=== PATIENT | male | born 1950 | race Caucasian/White ===

== ENCOUNTER 2019-06-16 07:05 | Inpatient (IN) | payer OTHER ==
[~2019-06-16] VITALS: Ht 177.8 cm; Wt 61.2 kg
[~2019-06-16 07:05] MED LIST: ASPI-859 PO; ESOM20CA PO; FENO160 PO; LOSA1TAB37 PO; OMEP40CA33 PO; POTA10TA15 PO
[2019-06-16] MEDS ORDERED: LEVOFLOXACIN 500 MG/D5W 100 ML IV ONE ×2 (07:30→12:45)
[2019-06-16] MEDS ORDERED: metroNIDAZOLE 500 mg/NS 100 ML IV ONE ×2 (07:30→17:00)
[2019-06-16] MEDS ORDERED: SIMETHICONE 40 MG/0.6 ML ML ONE (10:49)
[2019-06-16] MEDS: D5/0.45 NS 1,000 ML IV SCH (12:34)
[2019-06-16] MEDS ORDERED: HYDROmorphone 1 MG INJ. 1 MG/ML AMPUL IVP PRN ×2 (12:45)
[2019-06-16] MEDS ORDERED: HYDROcodone/ACETAMIN 5-325 MG TAB (NORCO/ VICODIN) PO PRN (12:45)
[2019-06-16] MEDS: HYDROmorphone 1 MG INJ. 1 MG/ML AMPUL IVP PRN ×2 (12:45→13:00)
[2019-06-16] MEDS ORDERED: HYDROcodone/ACETAMIN 10-325 MG TAB PO PRN (12:45)
[2019-06-16] MEDS ORDERED: ONDANSETRON HCL 4 MG/2 ML VIAL IVP PRN ×2 (12:45)
[2019-06-16] MEDS ORDERED: METOCLOPRAMIDE HCL 10 MG/2 ML VIAL IVP PRN (12:45)
[2019-06-16] MEDS ORDERED: HYDROmorphone 1 MG INJ. 1 MG/ML AMPUL ONE ×2 (13:00→13:18)
[2019-06-16 13:47] VITALS: BP_SYST 122
[2019-06-16 13:55] VITALS: BP_SYST 120
[2019-06-16 14:10] VITALS: BP_SYST 137
[2019-06-16 14:25] VITALS: BP_SYST 122
[2019-06-16 16:08] VITALS: BP_SYST 122
[2019-06-16] MEDS ORDERED: TEMAZEPAM 15 MG CAPSULE PO PRN (16:15)
[2019-06-16] MEDS ORDERED: WATER FOR IRRIGATION,STERILE 1,000 ML IRRIG.SOLN IR ONE (18:45)
[2019-06-16] MEDS ORDERED: PHENYLEPHRINE HCL 10 MG/ML VIAL (NEOSYNEPHRINE) ONE (18:45)
[2019-06-16] MEDS ORDERED: PROPOFOL 200MG/ 20ML VIAL (DIPRIVAN) IV ONE (18:45)
[2019-06-16] MEDS ORDERED: fentaNYL CITRATE 250 MCG/5 ML AMP ONE (18:45)
[2019-06-16] MEDS ORDERED: NEOSTIGMINE METHYLSULFATE 1 MG/ML, 10 ML VIAL ONE (18:45)
[2019-06-16] MEDS ORDERED: GLYCOPYRROLATE 0.2 MG/ML VIAL ONE (18:45)
[2019-06-16] MEDS ORDERED: SEVOFLURANE 15 MIN GAS INH ONE (18:45)
[2019-06-16] MEDS ORDERED: LR 1,000 ML IV.SOLN IV ONE (18:45)
[2019-06-16] MEDS ORDERED: SUCCINYLCHOLINE CHLORIDE 20 MG/ML(QUELICIN) ONE (18:45)
[2019-06-16] MEDS ORDERED: NS IRRIG SOLN 1000 ML IR ONE (18:45)
[2019-06-16] MEDS ORDERED: ROCURONIUM BROMIDE 10 MG/ML (ZEMURON) ONE (18:45)
[2019-06-16] MEDS ORDERED: ONDANSETRON HCL 4 MG/2 ML VIAL ONE (18:45)
[2019-06-16 20:25] VITALS: BP_SYST 137
[2019-06-16] MEDS: GABAPENTIN 100 MG CAPSULE PO SCH (21:33)
[2019-06-16] MEDS: metroNIDAZOLE 500 mg/NS 100 ML IV SCH (21:33)
[2019-06-16] MEDS: ACETAMINOPHEN 500 MG TABLET PO SCH (21:33)
[2019-06-16] MEDS: TEMAZEPAM 15 MG CAPSULE PO PRN (22:30)
[2019-06-17] MEDS: KETOROLAC TROMETHAMINE 15 MG VIAL IVP SCH ×5 (00:15→23:43)
[2019-06-17] MEDS: D5/0.45 NS 1,000 ML IV SCH (00:18)
[2019-06-17 00:27] VITALS: BP_SYST 155
[2019-06-17] MEDS: metroNIDAZOLE 500 mg/NS 100 ML IV SCH ×3 (05:21→22:12)
[2019-06-17] MEDS: NORMAL SALINE 5 ML DISP.SYRIN IVF SCH ×3 (05:21→22:00)
[2019-06-17] MEDS: ACETAMINOPHEN 500 MG TABLET PO SCH ×4 (06:19→22:13)
[2019-06-17 06:30] LABS: BASOPHILS % (AUTO) 0.2 % (0.0-2.0); EOSINOPHILS % (AUTO) 0.2 % (0.0-4.0); HEMATOCRIT 40.1 % (36-54); HEMOGLOBIN 13.8 g/dL (14.0-18.0); LYMPHOCYTES # (AUTO) 1.3 K/uL (1.0-5.5); LYMPHOCYTES % (AUTO) 16.8 % (20.5-51.5); MEAN CORPUSCULAR HEMOGLOBIN 33 pg (27-31); MEAN CORPUSCULAR HGB CONC 34 % (32-36); MEAN CORPUSCULAR VOLUME 97 fL (79.0-98.0); MONOCYTES # (AUTO) 0.6 K/uL (0.0-1.0); MONOCYTES % (AUTO) 7.7 % (1.7-9.3); NEUTROPHILS # (AUTO) 5.7 K/uL (1.8-7.7); NEUTROPHILS % (AUTO) 75.1 % (40.0-70.0); PLATELET COUNT (AUTO) 267 K/uL (130-430); RED BLOOD CELL COUNT(AUTO) 4.16 MIL/uL (4.2-6.2); RED CELL DISTRIBUTION WIDTH 13.1 % (9.0-15.0); WHITE BLOOD COUNT (AUTO) 7.6 K/uL (4.8-10.8)
[2019-06-17 08:00] VITALS: BP_SYST 130
[2019-06-17 08:15] LABS: CALCIUM 9.5 mg/dL (8.4-11.0); CREATININE 1.28 mg/dL (0.55-1.30); POTASSIUM 4.1 mmol/L (3.5-5.1)
[2019-06-17] MEDS ORDERED: OMEPRAZOLE Non-Formulary 20 MG CAPSULE.DR PO SCH (09:00)
[2019-06-17] MEDS: HYDROCHLOROTHIAZIDE 12.5 MG CAPSULE (HCTZ) PO SCH (09:29)
[2019-06-17] MEDS: GABAPENTIN 100 MG CAPSULE PO SCH ×3 (09:29→22:11)
[2019-06-17] MEDS: PANTOPRAZOLE SODIUM 40 MG TAB PO SCH (09:29)
[2019-06-17] MEDS: LOSARTAN POTASSIUM 50 MG TABLET (COZAAR) PO SCH (09:29)
[2019-06-17] MEDS: ENOXAPARIN SODIUM 40 MG/0.4 ML SYRINGE SUBCUT SCH (09:30)
[2019-06-17 11:25] VITALS: BP_SYST 109
[2019-06-17 15:42] VITALS: BP_SYST 114
[2019-06-17 20:00] VITALS: BP_SYST 126
[2019-06-17] MEDS: TEMAZEPAM 15 MG CAPSULE PO PRN (23:43)
[2019-06-18] VITALS: BP_SYST 114
[2019-06-18] MEDS: KETOROLAC TROMETHAMINE 15 MG VIAL IVP SCH ×3 (06:38→17:41)
[2019-06-18] MEDS: metroNIDAZOLE 500 mg/NS 100 ML IV SCH (06:39)
[2019-06-18] MEDS: NORMAL SALINE 5 ML DISP.SYRIN IVF SCH ×3 (06:40→22:16)
[2019-06-18] MEDS: ACETAMINOPHEN 500 MG TABLET PO SCH ×4 (06:40→22:09)
[2019-06-18 08:50] VITALS: BP_SYST 137
[2019-06-18] MEDS: PANTOPRAZOLE SODIUM 40 MG TAB PO SCH (09:02)
[2019-06-18] MEDS: GABAPENTIN 100 MG CAPSULE PO SCH ×3 (09:03→22:09)
[2019-06-18] MEDS: LOSARTAN POTASSIUM 50 MG TABLET (COZAAR) PO SCH (09:04)
[2019-06-18] MEDS: HYDROCHLOROTHIAZIDE 12.5 MG CAPSULE (HCTZ) PO SCH (09:04)
[2019-06-18] MEDS: ENOXAPARIN SODIUM 40 MG/0.4 ML SYRINGE SUBCUT SCH (09:06)
[2019-06-18 09:53] LABS: BASOPHILS % (AUTO) 0.3 % (0.0-2.0); EOSINOPHILS # (AUTO) 0.2 K/uL (0.0-0.4); EOSINOPHILS % (AUTO) 2.1 % (0.0-4.0); HEMATOCRIT 37.8 % (36-54); HEMOGLOBIN 13.1 g/dL (14.0-18.0); LYMPHOCYTES # (AUTO) 1.1 K/uL (1.0-5.5); LYMPHOCYTES % (AUTO) 9.5 % (20.5-51.5); MEAN CORPUSCULAR HEMOGLOBIN 34 pg (27-31); MEAN CORPUSCULAR HGB CONC 35 % (32-36); MEAN CORPUSCULAR VOLUME 97 fL (79.0-98.0); MONOCYTES # (AUTO) 0.4 K/uL (0.0-1.0); MONOCYTES % (AUTO) 3.4 % (1.7-9.3); NEUTROPHILS # (AUTO) 9.5 K/uL (1.8-7.7); NEUTROPHILS % (AUTO) 84.7 % (40.0-70.0); RED BLOOD CELL COUNT(AUTO) 3.89 MIL/uL (4.2-6.2); RED CELL DISTRIBUTION WIDTH 13.4 % (9.0-15.0); WHITE BLOOD COUNT (AUTO) 11.3 K/uL (4.8-10.8)
[2019-06-18 10:02] LABS: CALCIUM 9.7 mg/dL (8.4-11.0); CREATININE 1.01 mg/dL (0.55-1.30); POTASSIUM 4.1 mmol/L (3.5-5.1)
[2019-06-18 10:20] LABS: C-REACTIVE PROTEIN QUANT 18.4 mg/dL (0-0.5)
[2019-06-18 10:30] LABS: PLATELET COUNT (AUTO) 278 K/uL (130-430)
[2019-06-18 12:10] VITALS: BP_SYST 110
[2019-06-18 16:23] VITALS: BP_SYST 134
[2019-06-18 20:00] VITALS: BP_SYST 124
[2019-06-18] MEDS: TEMAZEPAM 15 MG CAPSULE PO PRN (22:09)
[2019-06-19] MEDS: KETOROLAC TROMETHAMINE 15 MG VIAL IVP SCH ×2 (06:00)
[2019-06-19 06:28] LABS: C-REACTIVE PROTEIN QUANT 22.6 mg/dL (0-0.5); CALCIUM 10.6 mg/dL (8.4-11.0); CREATININE 1.17 mg/dL (0.55-1.30); POTASSIUM 3.6 mmol/L (3.5-5.1)
[2019-06-19 06:33] LABS: BASOPHILS % (AUTO) 0.3 % (0.0-2.0); EOSINOPHILS # (AUTO) 0.4 K/uL (0.0-0.4); EOSINOPHILS % (AUTO) 4.9 % (0.0-4.0); HEMATOCRIT 35.7 % (36-54); HEMOGLOBIN 12.5 g/dL (14.0-18.0); MEAN CORPUSCULAR HEMOGLOBIN 33 pg (27-31); MEAN CORPUSCULAR HGB CONC 35 % (32-36); MEAN CORPUSCULAR VOLUME 95 fL (79.0-98.0); MONOCYTES # (AUTO) 0.3 K/uL (0.0-1.0); NEUTROPHILS # (AUTO) 6.9 K/uL (1.8-7.7); NEUTROPHILS % (AUTO) 78.8 % (40.0-70.0); PLATELET COUNT (AUTO) 312 K/uL (130-430); RED BLOOD CELL COUNT(AUTO) 3.75 MIL/uL (4.2-6.2); RED CELL DISTRIBUTION WIDTH 13.3 % (9.0-15.0); WHITE BLOOD COUNT (AUTO) 8.7 K/uL (4.8-10.8)
[2019-06-19] MEDS: ACETAMINOPHEN 500 MG TABLET PO SCH (06:52)
[2019-06-19] MEDS: NORMAL SALINE 5 ML DISP.SYRIN IVF SCH (06:53)
[2019-06-19 07:00] VITALS: BP_SYST 129
[2019-06-19 08:00] VITALS: BP_SYST 129
[2019-06-19] MEDS: LOSARTAN POTASSIUM 50 MG TABLET (COZAAR) PO SCH (09:00)
[2019-06-19] MEDS: ENOXAPARIN SODIUM 40 MG/0.4 ML SYRINGE SUBCUT SCH (09:00)
[2019-06-19] MEDS: PANTOPRAZOLE SODIUM 40 MG TAB PO SCH (09:00)
[2019-06-19] MEDS: HYDROCHLOROTHIAZIDE 12.5 MG CAPSULE (HCTZ) PO SCH (09:00)
[2019-06-19] MEDS: GABAPENTIN 100 MG CAPSULE PO SCH (09:00)
[2019-06-19] MEDS ORDERED: NEU100 PO (09:25)
[2019-06-19] MEDS ORDERED: HYDR-4272 PO (09:25)
[2019-06-19] MEDS ORDERED: TEMA15CA5 PO (09:25)
[2019-06-19 10:11] VITALS: BP_SYST 129
== END 2019-06-19 10:30 | disposition home or self-care (01) | DRG 331 ==
LOC: SMU 07:05 → EDSTATUS 12:30 → STU 13:31 → SMU 06-18 09:17
PROVIDERS: ADMIT Surgery; ATTEND Surgery
PROC: 0DBB0ZZ Excision of Ileum, Open Approach (ICD-10-PCS; 2019-06-16)
PROC: 0WPF0JZ Removal of Synthetic Substitute from Abdominal Wall, Open Approach (ICD-10-PCS; 2019-06-16)
PROC: 0DNN0ZZ Release Sigmoid Colon, Open Approach (ICD-10-PCS; principal; 2019-06-16 09:30)
DX: K94.13 Enterostomy malfunction (principal); I10 Essential (primary) hypertension; K21.9 Gastro-esophageal reflux disease without esophagitis; E78.5 Hyperlipidemia, unspecified; K57.30 Diverticulosis of large intestine without perforation or abscess without bleeding; J44.9 Chronic obstructive pulmonary disease, unspecified; Y83.3 Surgical operation with formation of external stoma as the cause of abnormal reaction of the patient, or of later complication, without mention of misadventure at the time of the procedure; Y92.89 Other specified places as the place of occurrence of the external cause
CPT/HCPCS: 36415; 80048; 85025; 86140; 87081; 88305; 88307; 94010; 94760; G0378; J0330; J1170; J1650; J1885; J1956; J2370; J2405; J2704; J2710; J3010; J3490; J7120

== ENCOUNTER 2019-06-22 00:12 | Inpatient (IN) | payer OTHER ==
[~2019-06-22] VITALS: Ht 177.8 cm; Wt 64.9 kg
[~2019-06-22 00:12] MED LIST changes: -ASPI-859 PO; +HYDR-4272 PO; +NEU100 PO; +TEMA15CA5 PO
[2019-06-22 00:15] VITALS: BP_SYST 143
--- NOTE | 2019-06-22 00:20 | NUR ---
Placed in room 8 . Placed on classroom monitor, blood pressure machine and pulse oximeter. To gown for exam. Side rails up.
--- NOTE | 2019-06-22 00:40 | NUR ---
Pt presents to ER with c/o abdominal pain, swelling, and bleeding from surgical site s/p ileostomy reversal. Pt states surgery was wednesday by Dr. Rome and Dr. Plata. Pt states pain is 7/10. Pt states pain and bleeding began at 11 pm. Will continue to monitor.
--- NOTE | 2019-06-22 00:42 | NUR ---
REPORT GIVEN TO STEPHANIE APARICIO.
--- NOTE | 2019-06-22 01:03 | NUR ---
ER Dr. Barriga at bedside examining patient.
[2019-06-22] MEDS ORDERED: KETOROLAC TROMETHAMINE 60 MG/2 ML VIAL IM ONE (01:15)
--- NOTE | 2019-06-22 01:17 | NUR ---
medication was given, pt tolerated well. Will continue to monitor.
--- NOTE | 2019-06-22 01:19 | NUR ---
non-adherent dressing applied to surgical site. Pt tolerated well. Will continue to monitor.
--- NOTE | 2019-06-22 01:20 | NUR ---
Patient went to CT in stable condition.
--- NOTE | 2019-06-22 01:33 | NUR ---
Pt returned from CT via [facility] in stable condition.
--- NOTE | 2019-06-22 01:35 | NUR ---
Lab at bedside.
--- NOTE | 2019-06-22 01:43 | NUR ---
Pt vomiting. MD aware. Medications ordered. Will continue to monitor.
[2019-06-22] MEDS ORDERED: ONDANSETRON 4 MG ODT TAB PO ONE (01:45)
[2019-06-22 01:56] LABS: BASOPHILS % (AUTO) 0.4 % (0.0-2.0); EOSINOPHILS # (AUTO) 0.2 K/uL (0.0-0.4); EOSINOPHILS % (AUTO) 2.2 % (0.0-4.0); HEMATOCRIT 34.9 % (36-54); HEMOGLOBIN 12.2 g/dL (14.0-18.0); LYMPHOCYTES % (AUTO) 12.2 % (20.5-51.5); MEAN CORPUSCULAR HEMOGLOBIN 33 pg (27-31); MEAN CORPUSCULAR HGB CONC 35 % (32-36); MEAN CORPUSCULAR VOLUME 95 fL (79.0-98.0); MONOCYTES # (AUTO) 0.6 K/uL (0.0-1.0); MONOCYTES % (AUTO) 7.1 % (1.7-9.3); NEUTROPHILS # (AUTO) 6.7 K/uL (1.8-7.7); NEUTROPHILS % (AUTO) 78.1 % (40.0-70.0); PLATELET COUNT (AUTO) 435 K/uL (130-430); RED BLOOD CELL COUNT(AUTO) 3.68 MIL/uL (4.2-6.2); WHITE BLOOD COUNT (AUTO) 8.6 K/uL (4.8-10.8)
[2019-06-22 02:02] LABS: CALCIUM 10.7 mg/dL (8.4-11.0); CREATININE 1.01 mg/dL (0.55-1.30); POTASSIUM 3.4 mmol/L (3.5-5.1)
[2019-06-22 02:08] LABS: ALBUMIN 3.5 g/dL (3.4-4.8); TOTAL BILIRUBIN 0.8 mg/dL (0.0-1.0)
--- NOTE | 2019-06-22 02:10 | NUR ---
# 20 gauge angiocath placed to L AC. Use of asceptic technique. Opsite placed over site. Blood return noted. Flushed with 10 cc of normal saline. No evidence of infiltration noted. Patient tolerated well.
[2019-06-22] MEDS ORDERED: [UNRECOGNIZED DRUG - CODE] PO (02:33)
[2019-06-22] MEDS ORDERED: GLUC-236 PO (02:33)
[2019-06-22] MEDS ORDERED: OCUVITE PO (02:33)
[2019-06-22] MEDS ORDERED: MILK200C5 PO (02:33)
[2019-06-22] MEDS ORDERED: ASA81 PO (02:33)
[2019-06-22] MEDS ORDERED: OMEG-82 PO (02:33)
--- NOTE | 2019-06-22 02:34 | NUR ---
Medication reconciliation completed with information provided by SHAI AT THE BEDSIDE. Any prior medication reconciliation on file was reviewed and corrected.
--- NOTE | 2019-06-22 02:57 | NUR ---
Pt medicated per MD orders. Pt tolerated well. Will continue to monitor.
[2019-06-22] MEDS ORDERED: NACL 0.9% 1,000 ML IV ONE (03:00)
[2019-06-22] MEDS ORDERED: MORPHINE 4 MG/ML INJ. SYRINGE IVP ONE (03:15)
[2019-06-22] MEDS ORDERED: NACL 0.9% 1,000 ML IV SCH (04:00)
[2019-06-22] MEDS ORDERED: ACETAMINOPHEN 120 MG SUPP.RECT RC PRN (04:00)
--- NOTE | 2019-06-22 04:17 | NUR ---
Patient will be admitted to care of [facility]. Admitted to Medical Surgical unit. Will go to room 125B. Belongings list completed. Complete and up to date summary report printed. SBAR report to be given at bedside with opportunity for questions.
--- NOTE | 2019-06-22 04:22 | NUR ---
Transfer to [facility]. IV present no sign or symptom of infiltration.
--- NOTE | 2019-06-22 04:44 | NUR ---
ADMISSION NOTE Received patient from ER via yvette, received report from CHAPARRITA APARICIO. Patient admitted with diagnosis of POST OP SBO, ABDOMINAL DISTENTION. Patient oriented to hospital routine, call light, toileting and safety-patient verbalized understanding.
[2019-06-22 04:53] VITALS: BP_SYST 123
--- NOTE | 2019-06-22 05:41 | NUR ---
REG CONSULT I CALLED THE NUMBER THAT IS LISTED IN THE DIRECTORY AND THE EXCHANGE SAYS THEY HAVE NO INFO TO SEND OUT ANY CONSULT TO COLLEEN KING. . WILL ENDORSE TO NEXT ON COMING SHIFT TO CALL.
--- NOTE | 2019-06-22 07:15 | NUR ---
OPENING NOTE PT RESTING IN BED. CHEST RISE AND FALL NOTED. AT BEDSIDE. ABDOMINAL DRESSING CLEAN, DRY AND INTACT. NO DRAINAGE NOTED. NO ODOR NOTED. ABDOMINAL DISTENTION NOTED. NO N/V AT THIS TIME. PAIN IS MANAGED. IV INTACT AND PATENT. FLUIDS RUNNING ORDERED. TOLERATING WELL. NO ACUTE DISTRESS NOTED. ALL NEEDS MET. CALL LIGHT IN REACH. FALL AND ASPIRATION PRECAUTIONS IN PLACE. CONTINUE TO MONITOR.
[2019-06-22 07:49] LABS: PROTHROMBIN TIME 10.2 SECS (9.5-12.5)
[2019-06-22 08:00] VITALS: BP_SYST 123
[2019-06-22 08:01] LABS: CHLORIDE 100 mmol/L (98-107); GLUCOSE 116 mg/dL (70-99); POTASSIUM 3.5 mmol/L (3.5-5.1); SODIUM SERUM 137 mmol/L (136-145); UREA NITROGEN, BLOOD 44 mg/dL (8-21)
[2019-06-22 08:05] LABS: ALANINE AMINOTRANSFERASE 23 U/L (12-78); ASPARTATE AMINOTRANSFERASE 19 U/L (10-37); TOTAL BILIRUBIN 0.5 mg/dL (0.0-1.0)
[2019-06-22 08:13] LABS: CALCIUM 9.9 mg/dL (8.4-11.0); CREATININE 1.15 mg/dL (0.55-1.30)
[2019-06-22 08:23] LABS: ANION GAP < 3 (5-15); GFR AFRICAN AMERICAN 81 mL/min (>90)
[2019-06-22] MEDS: PANTOPRAZOLE SODIUM 40 MG/VIAL (PROTONIX) IVP SCH (08:31)
--- NOTE | 2019-06-22 08:31 | NUR ---
MEDS MEDS ADMINISTERED ORDERED. EDUCATION GIVEN. TOLERATED WELL. NO ACUTE DISTRESS NOTED. AT BEDSIDE. FALL AND ASPIRATION PRECAUTIONS IN PLACE. ALL NEEDS MET. CALL LIGHT IN REACH. CONTINUE TO MONITOR.
[2019-06-22] MEDS ORDERED: IPRATROPIUM/ALBUTEROL SULFATE 3 ML AMPUL.NEB (DUONEB) INH PRN (09:00)
--- NOTE | 2019-06-22 09:07 | NUR ---
CONSULTATION PAGED/CALLED Reason for Consultation: POST OP BLEEDING Person Who was Notified: RAJWINDER Consulting Physician: DR. COLLEEN GAY Public Address System Mechanic Specialty: SURGERY Ordering Physician: DR. FARLEY
--- NOTE | 2019-06-22 09:24 | NUR ---
CRITICAL LAB SPOKE TO DR. FARLEY ABOUT CRITICAL LABS. ORDERS GIVEN. VERIFIED AND CARRIED OUT.
--- NOTE | 2019-06-22 10:00 | NUR ---
DR. GAY PLACED NG TUBE PT TOLERATED WELL. NO ACUTE DISTRESS NOTED. SCANT BLEEDING NOTED. ORDER FOR STAT KUB TO VERIFY PLACEMENT.
--- NOTE | 2019-06-22 10:13 | NUR ---
Nutrition Update Mauro Scale 17 noted. Pt admitted for post-op abd distention, SBO. Diet: NPO BMI: 20.5 kg/m2 RD to follow per nutrition care standards.
--- NOTE | 2019-06-22 10:20 | NUR ---
CONSULTATION PAGED/CALLED Reason for Consultation: ABNORMAL ABG RESULTS Person Who was Notified: WIMLER Consulting Physician: ELIZA Animal Anatomy Teacher Specialty: PULMONARY Ordering Physician: DR. FARLEY
--- NOTE | 2019-06-22 10:41 | NUR ---
SPOKE TO DR. FARLEY; PT TRANSFERRED TO TELE.
--- NOTE | 2019-06-22 11:20 | NUR ---
TRANSFER OF CARE PATIENT IS NOW ON TELE. TRANSFER OF CARE TO LOGAN APARICIO. WITH REPORT GIVEN AT BEDSIDE
[2019-06-22] MEDS: MORPHINE 2 MG/ML INJ. SYRINGE IVP PRN ×2 (11:23→21:55)
--- NOTE | 2019-06-22 11:25 | NUR ---
RECEIVED REPORT FROM TANVIR APARICIO AT BEDSIDE. PATIENT AAOX3, SKIN W/D TO TOUCH, AGUILA, POS. PULSES, NEG EDEMA. PATIENT HAS A RECENT PLACEMENT OF AN NGT, PENDING CONFIRMATION BY X-RAY. AT BEDSIDE. VS WNL, PATIENT VOICES NO C/O PAIN AT PRESENT. NGT W/ LARGE OUTPUT OF GREEN COLOR FLUID ( 400 ML OUT INITIALLY).
[2019-06-22] MEDS: D5LR 1,000 ML IV SCH ×2 (11:43→21:53)
--- NOTE | 2019-06-22 12:00 | NUR ---
DSG CHANGE DONE TO MID ABD BACKWARD L SHAPED LINEAR SURGICAL WOUND. CLEANSED W/ NS, LOWER "L" WITH SUTURES, "L" MIDLINE W/ SMALL OPEN AREA AND SURGICAL GLUE TO MOST OF SAGITTAL LINE W/ CLOSED INTENTION. PATIENT TOLERATED WELL. DSG DRY AND INTACT COVERED W/ 2 LARGE STRATASORB COMPOSITE AND 1 SMALL STRATASORB COMPOSITE.
[2019-06-22 13:16] VITALS: BP_SYST 129
--- NOTE | 2019-06-22 14:30 | NUR ---
PT OOB TO BRP FOR A BM, VOIDED,NO BM, PASSING FLATUS. NGT OUTPUT INCREASED TO 600ML, CONT TO BE GREEN IN COLOR. DSG CHANGE DONE AT 12N REMAINS DRY AND INTACT. FRESH ICE CHIP GIVEN EVERY 2-3 HRS, TOLERATING WELL, FAM AT BEDSIDE.
[2019-06-22 16:24] VITALS: BP_SYST 116
--- NOTE | 2019-06-22 17:50 | NUR ---
PT RESTING QUIETLY W/ FAM AT BEDSIDE, STATES HE IS PASSING GAS, NGT W/ AT THE 800 LATANYA (200ML OUTPUT) SINCE 1400 (600ML OUTPUT). ENC TO CONT USE OF INCENTIVE SPIROMETRY, SCDS NOT IN USE AT PRESENT. STILL PENDING VENOUS DOPPLER STUDY, EGG PRODUCER CALLED TO ASSESS PATIENT STATUS, PT IN NO DISTRESS, ON BR, SHE WILL DO DOPPLER STUDIES MEE, HAS OTHER ORDERS.
--- NOTE | 2019-06-22 18:10 | NUR ---
DSG BECAME SATURATED. DSG CHANGE X2 DONE TO MID ABD BACKWARD L SHAPED LINEAR SURGICAL WOUND. CLEANSED W/ NS, LOWER "L" WITH SUTURES, "L" MIDLINE W/ SMALL OPEN AREA AND SURGICAL GLUE TO MOST OF SAGITTAL LINE W/ CLOSED INTENTION. PATIENT TOLERATED WELL. WOUND COVERED W/ 2 LARGE STRATASORB COMPOSITE AND 1 SMALL STRATASORB COMPOSITE, DSG DRY AND INTACT.
[2019-06-22] MEDS: IPRATROPIUM/ALBUTEROL SULFATE 3 ML AMPUL.NEB (DUONEB) INH SCH (19:00)
--- NOTE | 2019-06-22 19:35 | NUR ---
REPORT GIVEN TO NIGHT MARKUS SHELTON AT BEDSIDE. DOPPLER STUDY COMPLETED, KELLY KAY GAVE PRELIMINARY REPORT TO MYSELF AND NIKITA, STATING PT IS NEG FOR DVT RO BILAT LOWER EXTREMITIES. PATIENT RESTING IN NAD. FAMILY AT BEDSIDE.
--- NOTE | 2019-06-22 19:44 | NUR ---
Opening Note Received report from miah APARICIO, patient resting in bed, no signs of acute distress, even and unlabored breathing on room air, IV to left AC intact and infusing fluids per MD order, NG tube in the left nostril, low intermittent suction, safety and fall precautions in place, aspiration precautions in place, bed locked and in lowest position, three side rails up, patient refused bed alarm despite education, will reinforce education on bed alarm system, call light with patient, will continue to monitor. Addendum: 06/23/19 at 0536 by Lisa Rowland RN 800ml of green drainage from NG tube.
[2019-06-22 20:00] VITALS: BP_SYST 133
--- NOTE | 2019-06-22 21:55 | NUR ---
Pain Patient is resting in bed, complains of abdominal pain 12/14. Morphine 2 MG indicated. Education provided regarding medication indications and potential side effects, patient able to verbalize understanding. Medication administered intravenously via left forearm IV site, no infiltration. Safety and fall precautions in place. Call light with patient. Will continue to monitor.
--- NOTE | 2019-06-22 23:50 | NUR ---
Assisted to restroom Assisted patient to restroom and back to bed safely, patient voided, reported no difficulty, steady gait, IV site intact, patent/benign, safety and fall precautions in place, call light with patient, will continue to monitor.
[2019-06-23] VITALS: BP_SYST 120
[2019-06-23] MEDS: IPRATROPIUM/ALBUTEROL SULFATE 3 ML AMPUL.NEB (DUONEB) INH SCH ×4 (01:00→19:00)
--- NOTE | 2019-06-23 01:10 | NUR ---
RN Rounds Patient resting in bed, family at bedside, even and unlabored breathing on 2L NC, IV infusing fluids per MD order, patent/benign, NG tube draining, safety and fall precautions in place, aspiration precautions in place, call light with patient, will continue to monitor.
--- NOTE | 2019-06-23 03:45 | NUR ---
Pain: Patient is in bed, complained of abdominal pain 7/10 after ambulating with assistance to the bathroom. Morphine 2 MG indicated. Education provided regarding medication indications, side effects, patient verbalized understanding. Medication administered intravenously via left forearm IV site, no infiltration. Call light with patient. Safety, fall precautions in place. Will continue monitoring.
[2019-06-23] MEDS: MORPHINE 2 MG/ML INJ. SYRINGE IVP PRN ×2 (05:18→18:51)
[2019-06-23] MEDS: D5LR 1,000 ML IV SCH (06:14)
[2019-06-23 06:40] LABS: BASOPHILS % (AUTO) 0.4 % (0.0-2.0); EOSINOPHILS # (AUTO) 0.2 K/uL (0.0-0.4); EOSINOPHILS % (AUTO) 1.9 % (0.0-4.0); HEMATOCRIT 32.6 % (36-54); HEMOGLOBIN 11.5 g/dL (14.0-18.0); LYMPHOCYTES # (AUTO) 0.8 K/uL (1.0-5.5); LYMPHOCYTES % (AUTO) 9.9 % (20.5-51.5); MEAN CORPUSCULAR HEMOGLOBIN 34 pg (27-31); MEAN CORPUSCULAR HGB CONC 35 % (32-36); MEAN CORPUSCULAR VOLUME 97 fL (79.0-98.0); MONOCYTES # (AUTO) 0.7 K/uL (0.0-1.0); MONOCYTES % (AUTO) 8.7 % (1.7-9.3); NEUTROPHILS # (AUTO) 6.4 K/uL (1.8-7.7); NEUTROPHILS % (AUTO) 79.1 % (40.0-70.0); PLATELET COUNT (AUTO) 368 K/uL (130-430); RED BLOOD CELL COUNT(AUTO) 3.37 MIL/uL (4.2-6.2); RED CELL DISTRIBUTION WIDTH 13.2 % (9.0-15.0)
--- NOTE | 2019-06-23 06:59 | NUR ---
Closing Note Patient resting in bed, family at bedside, no signs of acute distress, even and unlabored breathing on 4L NC, IV to left AC intact and infusing fluids per MD order, NG tube in the left nostril, low intermittent suction, 20 mL of green drainage at end of shift from NG tube, dressing change x2 completed to incision site during shift, safety and fall precautions in place, aspiration precautions in place, bed locked and in lowest position, three side rails up, patient refused bed alarm despite education, call light with patient, will endorse care to dayshift RN.
[2019-06-23 07:00] LABS: ALBUMIN 2.6 g/dL (3.4-4.8); CALCIUM 9.4 mg/dL (8.4-11.0); CREATININE 0.76 mg/dL (0.55-1.30); POTASSIUM 3.6 mmol/L (3.5-5.1); TOTAL BILIRUBIN 0.5 mg/dL (0.0-1.0)
[2019-06-23 07:35] VITALS: BP_SYST 123
--- NOTE | 2019-06-23 07:35 | NUR ---
INITIAL ROUNDS/MD Received pt AAOx4, no s/s resp distress, no c/o pain or discomfort. Pt has NGT to left nares-placement verified-to LIS, no drainage noted at this time. Noted dressing clean, dry and intact to mid-abd. IVF infusing well to LAC at ordered rate with no s/s infiltration to site. BLE with SCDs in place. Pt seen by Dr. Plata, incision site checked by MD. Plan of care for the day reviewed with pt and pt's -both verbalized their understanding. Pt has Incentive Spirometer at bedside-pt demonstrated use correctly-pt encouraged to use every hour while awake by this pattern chart writer and MD. Pain management, disease process, skin and safety discussed-teach back done. Call light within reach.
[2019-06-23] MEDS: PANTOPRAZOLE SODIUM 40 MG/VIAL (PROTONIX) IVP SCH (09:17)
--- NOTE | 2019-06-23 10:51 | NUR ---
ROUNDS/AMBULATE/DRESSING Pt ambulated in the hallway around the nursing station with steady gait, no c/o shortness of breath, no c/o pain or discomfort. Pt passed a moderate amount of gas during ambulation. Noted moderate amount of serosanguineous drainage on abd dressing post walk-old dressing removed, area cleansed with warm water, covered with 4x4 and abd dressing and secured in place with paper tape. Of note, pt had abd dressing changed 5 minutes prior to ambulation due to moderate amount of serosanguineous drainage. Pt did his Incentive spirometer, requested a breathing treatment-pt refused the 0700 HHN because he wanted it post ambulation. Sandy ask Md for PRN breathing treatments. No c/o pain or discomfort. NG tube Placement verified, pt placed back onto LIS via NGT. Needs met, call light within reach.
--- NOTE | 2019-06-23 12:20 | NUR ---
BM/DRESSING CHANGE Pt ambulated to the bathroom with slow, steady gait-pt stated he had a small, soft BM. Pt connected back to LIS via NGT. Pt placed back onto O2 2L via NC. No c/o pain or discomfort, no s/s resp distress. Dressing to abd changed. Pt's remains helpful at bedside. Needs met, call light within reach.
[2019-06-23 12:46] VITALS: BP_SYST 116
[2019-06-23] MEDS: KCL 20 mEq in 0.45% NS 1000 mL 1,000 ML IV SCH ×3 (14:10→23:16)
--- NOTE | 2019-06-23 14:10 | NUR ---
BM/DRESSING Pt ambulated to the bathroom and stated he had a small, soft BM. Pt stated he was feeling better and refused to have the NGT placed to LIS he stated "he doesn't look like anything is coming out anymore". Pt and pt's educated about the purpose of the NGT-pt still refused. Dressing to abd with moderate amount of serosanguineous drainage, old dressing removed, area cleansed with warm water, covered with 4x4s and abd dressing and secured in place with paper tape. Pt tolerated well. New IVf hung at ordered rate. Fresh ice chips given. Needs met, call light within reach.
[2019-06-23] MEDS: ONDANSETRON HCL 4 MG/2 ML VIAL IVP PRN ×2 (18:44→23:18)
--- NOTE | 2019-06-23 19:00 | NUR ---
CLOSING NOTE/BM/DRESSING CHANGE Pt resting quietly in bed with no s/s resp distress, pt declining O2 via NC at this time-SAO2 92%, no c/o shortness of breath. Pt c/o pain to abd-pt given Zofran due to Morphine makes pt nauseated then pt given Morphine as ordered for pain. Pt ambulated to the bathroom earlier, pt voided and had a small, soft BM. Pt stated he was feeling better and refused to have the NGT placed to LIS. Pt and pt's sister educated about the purpose of the NGT-pt still refused. Dressing to abd with moderate amount of serosanguineous drainage, old dressing removed, area cleansed with warm water, covered with 4x4s and abd dressing then secured in place with paper tape. All precautions remain in place. Needs met, call light within reach.
--- NOTE | 2019-06-23 19:52 | NUR ---
Initial note: Received report from miah RN. Patient is awake in bed, no acute distress. Tolerating 4L NC, SaO2 = 94%. IV fluids infusing well to left AC IV site, no infiltration noted. Abdominal dressing clean, dry, intact. Patient able to inspire 1100 ML via incentive spirometer, patient verbalizes correct usage of 10 times every hour while awake. Call light with patient. Safety, fall precautions in place. Will continue with plan of care. Addendum: 06/24/19 at 0450 by Epifanio Rios RN Patient has an NG tube to left nare, off suction and clamped per order.
[2019-06-23 20:00] VITALS: BP_SYST 121
[2019-06-23] MEDS ORDERED: IPRATROPIUM/ALBUTEROL SULFATE 3 ML AMPUL.NEB (DUONEB) INH PRN (20:00)
--- NOTE | 2019-06-23 21:04 | NUR ---
Dr. Bass rounds: MD at bedside to assess and examine patient. Per Dr. Bass, NG tube is to be removed tomorrow by Dr. Plata. Received clearance from Dr. Bass for Lovenox 40 MG SQ daily as ordered by Dr. Araya. Order received for Benadryl 25 MG IVP x1 for sleep, but patient is refusing at this time, requesting Temazepam as ordered by Dr. Plata. New order verified by read-back, RN to input.
[2019-06-23] MEDS ORDERED: DIPHENHYDRAMINE INJ 50 MG/ML VIAL IVP SCH (23:00)
[2019-06-23] MEDS: TEMAZEPAM 15 MG CAPSULE PO PRN (23:17)
--- NOTE | 2019-06-23 23:20 | NUR ---
Nausea/sleep: Patient requesting Restoril for sleep. Administered Zofran 4 MG IVP for nausea prophylaxis. Restoril administered after per MD order. Patient tolerated well, no complaints of nausea. Education provided regarding indications and side effects, patient verbalized understanding. Dressing clean, dry, intact at this time. Call light with patient. Safety, fall precautions in place. Will continue to monitor.
[2019-06-24 00:57] VITALS: BP_SYST 123
[2019-06-24] MEDS: IPRATROPIUM/ALBUTEROL SULFATE 3 ML AMPUL.NEB (DUONEB) INH SCH ×4 (01:00→20:56)
--- NOTE | 2019-06-24 02:57 | NUR ---
Rounds: Patient is resting in bed, no acute distress. Tolerating 4L NC. IV fluids infusing, no infiltration. NG tube remains in place. Call light with patient. Will continue monitoring.
--- NOTE | 2019-06-24 05:46 | NUR ---
Dressing change: Abdominal dressing change performed. Patient tolerated well. Both incisions cleansed with NS, covered with nonadhesive dressing, covered with abdominal dressing, secured with 2 inch paper tape. Will continue to monitor.
--- NOTE | 2019-06-24 06:55 | NUR ---
Closing note: Patient is taken off unit at this time for abdominal x-ray. Patient tolerating 4L NC. IV site saline locked for transport, no infiltration. Provided a diaper for transportation to radiology, informed patient and patient's that the diaper will need to be removed once he is back in the room from radiology. NG tube to left nare in place. Patient is hostile at this time. All needs met. Safety, fall, aspiration, precautions observed. Hourly rounding performed throughout shift. Will endorse care to dayshift RN.
[2019-06-24 07:02] LABS: BASOPHILS % (AUTO) 0.5 % (0.0-2.0); EOSINOPHILS # (AUTO) 0.4 K/uL (0.0-0.4); EOSINOPHILS % (AUTO) 6.3 % (0.0-4.0); HEMATOCRIT 32.8 % (36-54); HEMOGLOBIN 11.3 g/dL (14.0-18.0); LYMPHOCYTES # (AUTO) 0.9 K/uL (1.0-5.5); LYMPHOCYTES % (AUTO) 16.4 % (20.5-51.5); MEAN CORPUSCULAR HEMOGLOBIN 34 pg (27-31); MEAN CORPUSCULAR HGB CONC 34 % (32-36); MEAN CORPUSCULAR VOLUME 98 fL (79.0-98.0); MONOCYTES # (AUTO) 0.5 K/uL (0.0-1.0); MONOCYTES % (AUTO) 8.6 % (1.7-9.3); NEUTROPHILS # (AUTO) 3.9 K/uL (1.8-7.7); NEUTROPHILS % (AUTO) 68.2 % (40.0-70.0); PLATELET COUNT (AUTO) 394 K/uL (130-430); RED BLOOD CELL COUNT(AUTO) 3.35 MIL/uL (4.2-6.2); RED CELL DISTRIBUTION WIDTH 13.3 % (9.0-15.0); WHITE BLOOD COUNT (AUTO) 5.7 K/uL (4.8-10.8)
[2019-06-24 07:22] LABS: CALCIUM 8.8 mg/dL (8.4-11.0); CREATININE 0.73 mg/dL (0.55-1.30); POTASSIUM 3.7 mmol/L (3.5-5.1)
[2019-06-24 07:55] VITALS: BP_SYST 121
[2019-06-24] MEDS: PANTOPRAZOLE SODIUM 40 MG/VIAL (PROTONIX) IVP SCH (08:19)
[2019-06-24] MEDS: ENOXAPARIN SODIUM 40 MG/0.4 ML SYRINGE SUBCUT SCH (08:21)
--- NOTE | 2019-06-24 08:30 | NUR ---
DR GAY WAS HERE AND SEEN PT. CHANGED DRESSING OF THE MID ABDOMINAL SURGICAL SITE, MD SAID TO CHANGE IT PRN AND DONT LET IT GET SOAKED. ALSO DISCONTINUED THE NGT. NEW ORDERS GIVEN AND CARRIED OUT.
[2019-06-24] MEDS ORDERED: KETOROLAC TROMETHAMINE 15 MG VIAL IVP PRN (08:45)
[2019-06-24 09:00] VITALS: BP_SYST 121
[2019-06-24] MEDS ORDERED: GABAPENTIN 100 MG CAPSULE PO ONE (09:00)
--- NOTE | 2019-06-24 10:30 | NUR ---
PT IN BED, NO C/O PAIN, FAMILY AT BEDSIDE.
[2019-06-24] MEDS: ACETAMINOPHEN 500 MG TABLET PO SCH ×3 (11:17→20:13)
[2019-06-24 12:42] VITALS: BP_SYST 107
--- NOTE | 2019-06-24 12:45 | NUR ---
PT IN BED, NO C/O PAIN. NO SOB.
[2019-06-24] MEDS: GABAPENTIN 100 MG CAPSULE PO SCH ×2 (14:45→20:13)
[2019-06-24] MEDS: KCL 20 mEq in 0.45% NS 1000 mL 1,000 ML IV SCH ×2 (14:46→19:00)
--- NOTE | 2019-06-24 15:00 | NUR ---
PT'S SURGICAL SITE DRESSING CHANGED, IT WAS HALF SOAKED WITH SEROSANGUINOUS DRAINAGE. PT DENIES PAIN. PT TOLERATED WELL.
[2019-06-24 16:43] VITALS: BP_SYST 113
--- NOTE | 2019-06-24 17:00 | NUR ---
PT AMBULATED IN THE HALLWAY WITH FAMILY. NO C/O PAIN, NO SOB.
--- NOTE | 2019-06-24 18:05 | NUR ---
PT IN BED, NO C/O PAIN, VISITOR AT BEDSIDE.
--- NOTE | 2019-06-24 19:03 | NUR ---
ABDOMINAL DRESSING CHANGED DUE TO SOAKING FROM DRAINAGE. PT TOLERATED WELL.
--- NOTE | 2019-06-24 19:03 | NUR ---
CLOSING NOTES, PT HAS BEEN STABLE THE WHOLE SHIFT. NO C/O OF PAIN. GIVEN SCHEDULED PAIN MEDS, PT REPEATEDLY REQUESTED TO BE DISCONNECTED FROM HIS IV FLUID HE WANTS TO GO TO THE BATHROOM WITHOUT IT AND AL;SO WHEN AMBULATING IN THE HALLWAY, PT AMBULATED 3X IN THE HALLWAY TODAY. PT DID BREATHING EXERCISE WITH THE INCENTIVE SPIROMETRY. WOUND DRESSING CHANGED 3X TODAY DUE TO DRAINAGE. WILL ENDORSE TO NIGHT NURSE.
--- NOTE | 2019-06-24 19:20 | NUR ---
OPENING NOTE Received care of patient and sbar report. Patient resting in bed, AAOx4, family at bedside, no signs of acute distress, even and unlabored breathing on 2L NC, IV to left AC intact and infusing fluids per MD order. POC discussed with pt, pt verbalized understanding. Safety and fall precautions in place, aspiration precautions in place, bed locked and in lowest position, three side rails up, patient refused bed alarm despite education, call light with patient.
[2019-06-24 20:00] VITALS: BP_SYST 104
--- NOTE | 2019-06-24 20:13 | NUR ---
MEDICATION PASS SCHEDULED MEDICATIONS ADMINISTERED TO PT, MEDICATION ACTIONS AND POTENTIAL SIDE EFFECTS DISCUSSED. NO S/S OF DISTRESS. PT'S FAMILY IS AT BEDSIDE. PT PROVIDED FRESH ICE CHIPS. SAFETY PRECAUTIONS MAINTAINED. WILL MONITOR.
--- NOTE | 2019-06-24 21:55 | NUR ---
ABDOMINAL DRESSING CHANGE CLEANED WITH NS, PAT DRY, COVERED WITH 4X4, TAPED WITH PAPER TAPE. PT TOLERATED WELL.
[2019-06-25] VITALS: BP_SYST 112
--- NOTE | 2019-06-25 00:10 | NUR ---
RESTING PT RESTING IN BED, NO S/S OF ACUTE DISTRESS, BREATHING IS UNLABORED TO O2 AT 2L VIA NC. SAFETY PRECAUTIONS MAINTAINED. WILL MONITOR.
[2019-06-25] MEDS: IPRATROPIUM/ALBUTEROL SULFATE 3 ML AMPUL.NEB (DUONEB) INH SCH ×3 (01:00→21:10)
--- NOTE | 2019-06-25 02:15 | NUR ---
RESTING PT RESTING IN BED, NO S/S OF ACUTE DISTRESS, BREATHING IS UNLABORED TO O2 AT 2L VIA NC. SAFETY PRECAUTIONS MAINTAINED. WILL MONITOR.
[2019-06-25] MEDS: TEMAZEPAM 15 MG CAPSULE PO PRN ×2 (03:19→21:50)
--- NOTE | 2019-06-25 04:00 | NUR ---
RN NOTE: NO S/S OF ACUTE DISTRESS. BREATHING IS UNLABORED TO O2 VIA NC AT 2L. NO SIGN OF PAIN NOTED. SAFETY MAINTAINED. WILL MONITOR.
[2019-06-25] MEDS: KCL 20 mEq in 0.45% NS 1000 mL 1,000 ML IV SCH ×2 (05:00→19:00)
[2019-06-25] MEDS: ACETAMINOPHEN 500 MG TABLET PO SCH ×4 (06:08→21:00)
--- NOTE | 2019-06-25 06:08 | NUR ---
TYLENOL SCHEDULED TYLENOL ADMINISTERED ORDERED. NO S/S OF ACUTE DISTRESS. SAFETY PRECAUTIONS MAINTAINED. WILL MONITOR.
--- NOTE | 2019-06-25 06:47 | NUR ---
CLOSING NOTES, PT HAS BEEN STABLE THROUGHOUT SHIFT. NO C/O OF PAIN. GIVEN SCHEDULED PAIN MEDS. PT REFUSED IVF THROUGHOUT THE NIGHT. PT DID BREATHING EXERCISE WITH THE INCENTIVE SPIROMETRY. WOUND DRESSING CHANGED DUE TO DRAINAGE. ALL NEEDS MET. WILL ENDORSE TO DAY NURSE.
--- NOTE | 2019-06-25 07:58 | NUR ---
opening notes, received pt in bed, pt is aaox4, denies pain, no sob, no distress. pt ambulated to the restroom. no sob, no distress. dressing on abdominal surgical site changed. with dry 4x4. safety precaution in place. call light in reach. encouraged to call for assist and pain meds. will cont to monitor.
[2019-06-25 08:01] VITALS: BP_SYST 107
[2019-06-25] MEDS: PANTOPRAZOLE SODIUM 40 MG/VIAL (PROTONIX) IVP SCH (08:34)
[2019-06-25] MEDS: GABAPENTIN 100 MG CAPSULE PO SCH ×3 (08:34→21:50)
[2019-06-25] MEDS: ENOXAPARIN SODIUM 40 MG/0.4 ML SYRINGE SUBCUT SCH (08:35)
--- NOTE | 2019-06-25 11:14 | NUR ---
abdominal wound dressing changed as it is soaked with serous drainage. no bleeding. pt tolerated well.
--- NOTE | 2019-06-25 12:10 | NUR ---
pt in bed, family at bedside. given scheduled pain med.
[2019-06-25 12:37] VITALS: BP_SYST 101
--- NOTE | 2019-06-25 14:20 | NUR ---
dr bowen here and seen patient. family at bedside. pt has no pain, no sob. abdominal dressing changed.
[2019-06-25 17:29] VITALS: BP_SYST 123
[2019-06-25 18:03] VITALS: BP_SYST 123
--- NOTE | 2019-06-25 18:28 | NUR ---
CLOSING NOTES, PT HAS BEEN STABLE THE WHOLE SHIFT, NO C/O PAIN. ALL MEDS OFFERED AND TAKEN. ALL NEEDS MET AND ATTENDED TO. WOUND DRESSING CHANGED X4 TODAY DUE TO DRAINAGE. PT NOW ON SOFT DIET. PT UNDERSTAND THAT MD DOES NOT WANT HIM TO EAT A LOT THIS TIME. WILL ENDORSE TO NIGHT NURSE.
--- NOTE | 2019-06-25 18:45 | NUR ---
ABDOMINAL WOUND DRESSING CHANGED. PT ARE DINNER. PT TOLERATED SOFT DIET, PT AWARE NOT EAT A LOT AND DRINK A LOT OF ENSURE PER MD.
--- NOTE | 2019-06-25 19:10 | NUR ---
OPENING NOTES Patient awake AOx4, family at bedside. No signs of respiratory distress noted. Denies pain and discomfort at this time. IV site, patency noted. On 2L of oxygen via nasal cannula, tolerating well. Abdominal Dressing dry, clean and intact. No active drainage and bleeding noted. Call light within reach. Patient educated to use call light when assistance is needed. Patient verbalized understanding. Bed locked and in lowest position. Safety precautions in place. Will continue to monitor patient.
[2019-06-25 20:00] VITALS: BP_SYST 112
--- NOTE | 2019-06-25 21:50 | NUR ---
MED PASS Due medication given at this time, patient tolerated well. No signs of respiratory distress. Denies pain and discomfort at this time. Call light within reach. Safety precautions in place. Will continue to monitor.
--- NOTE | 2019-06-25 23:30 | NUR ---
RN ROUNDS Patient asleep at this time time, at bed side. No signs of respiratory distress and discomfort noted. Breathing even and unlabored. Safety precautions in place. Will continue to monitor patient.
[2019-06-26] VITALS: BP_SYST 115
[2019-06-26] MEDS: IPRATROPIUM/ALBUTEROL SULFATE 3 ML AMPUL.NEB (DUONEB) INH SCH ×2 (01:00→07:00)
--- NOTE | 2019-06-26 04:32 | NUR ---
RN ROUNDS Patient asleep at this time time, at bed side. No signs of respiratory distress and discomfort noted. Breathing even and unlabored. Call light within reach. Safety precautions in place. Will continue to monitor patient.
[2019-06-26] MEDS: KCL 20 mEq in 0.45% NS 1000 mL 1,000 ML IV SCH (05:00)
[2019-06-26] MEDS: ACETAMINOPHEN 500 MG TABLET PO SCH (06:29)
--- NOTE | 2019-06-26 07:00 | NUR ---
CLOSING NOTES Patient awake AOx4, sitting in bed watching TV. No signs of respiratory distress noted. Denies pain and discomfort at this time. IV site, patency noted. On room air of 95% tolerating well. Abdominal Dressing dry, clean and intact. No active drainage and bleeding noted. Call light within reach. Bed locked and in lowest position. Safety precautions in place. All needs met throughout the shift, endorsed to MARKUS Munoz for continuity of care.
[2019-06-26 08:00] VITALS: BP_SYST 113
--- NOTE | 2019-06-26 08:00 | NUR ---
received awake and in no c/o discomfort.vss. resp even and unlabored up amb in room.gretag to abd cdi.sl patent to lac.will continue to monitor and call purcell purcell in place.
[2019-06-26] MEDS: GABAPENTIN 100 MG CAPSULE PO SCH (08:39)
[2019-06-26] MEDS: PANTOPRAZOLE SODIUM 40 MG/VIAL (PROTONIX) IVP SCH (08:40)
[2019-06-26] MEDS: ENOXAPARIN SODIUM 40 MG/0.4 ML SYRINGE SUBCUT SCH (08:43)
--- NOTE | 2019-06-26 13:00 | NUR ---
d/c home and instructions given and understood.iv removed.taken out by w/c accompanied by and nurse.all belongings taken with pt
== END 2019-06-26 12:50 | disposition home or self-care (01) | DRG 920 ==
LOC: SED 00:12 → SMU 03:47 → STU 10:59 → SMU 06-25 15:38
PROVIDERS: ADMIT Internal Medicine; ATTEND Internal Medicine
DX: K91.840 Postprocedural hemorrhage of a digestive system organ or structure following a digestive system procedure (principal); K56.7 Ileus, unspecified; J98.11 Atelectasis; E78.5 Hyperlipidemia, unspecified; E87.6 Hypokalemia; F17.210 Nicotine dependence, cigarettes, uncomplicated; I10 Essential (primary) hypertension; J44.9 Chronic obstructive pulmonary disease, unspecified; R09.02 Hypoxemia; K66.0 Peritoneal adhesions (postprocedural) (postinfection); Y83.8 Other surgical procedures as the cause of abnormal reaction of the patient, or of later complication, without mention of misadventure at the time of the procedure; K63.5 Polyp of colon; Z87.19 Personal history of other diseases of the digestive system; Z79.899 Other long term (current) drug therapy; Z79.82 Long term (current) use of aspirin; Y92.89 Other specified places as the place of occurrence of the external cause
CPT/HCPCS: 36415; 36600; 71045; 74018; 74021; 80048; 80053; 82803-TC; 83690-TC; 85025; 85610-TC; 85730-TC; 87081; 93005; 93970; 94640; 94760; 96372; 96374; 96375; 99285; C9113; G0378; J1650; J1885; J2270; J2405; J3480; J7030; J7120; J7620; Q0162

== ENCOUNTER 2019-11-17 07:09 | Day surgery (SDC) | payer OTHER, MEDICARE, SELFPAY ==
[2019-11-14 12:49] LABS: ALBUMIN 4.4 g/dL (3.4-4.8); CALCIUM 10.2 mg/dL (8.4-11.0); CREATININE 0.77 mg/dL (0.55-1.30); POTASSIUM 4.2 mmol/L (3.5-5.1); TOTAL BILIRUBIN 0.7 mg/dL (0.0-1.0)
[~2019-11-17] VITALS: Ht 177.8 cm; Wt 62.6 kg
[~2019-11-17 07:09] MED LIST changes: +ASA81 PO; +GLUC-236 PO; -HYDR-4272 PO; +MILK200C5 PO; -NEU100 PO; +OCUVITE PO; +OMEG-82 PO; -TEMA15CA5 PO; +[UNRECOGNIZED DRUG - CODE] PO
[2019-11-17] MEDS ORDERED: CEFAZOLIN 1 GM IVPB PREMIX 50 ML IV SCH (08:00)
[2019-11-17] MEDS ORDERED: DEXAMETHASONE SOD PHOSPHATE 4 MG/ML VIAL IVP ONE (09:04)
[2019-11-17] MEDS ORDERED: BUPIVACAINE /PF 0.25% 30 ML VIAL INJ ONE (09:04)
[2019-11-17] MEDS ORDERED: LIDOCAINE/EPI 1% 1:100000 20 ML VIAL INJ ONE (09:04)
[2019-11-17] MEDS ORDERED: ROCURONIUM BROMIDE 10 MG/ML (ZEMURON) IV ONE (09:04)
[2019-11-17] MEDS ORDERED: SEVOFLURANE 15 MIN GAS INH ONE (09:04)
[2019-11-17] MEDS ORDERED: fentaNYL CITRATE/PF 100 MCG/2 ML AMP IVP ONE (09:04)
[2019-11-17] MEDS ORDERED: PROPOFOL 200MG/ 20ML VIAL (DIPRIVAN) IV ONE (09:04)
[2019-11-17] MEDS ORDERED: NS IRRIG SOLN 1000 ML IR ONE (09:04)
[2019-11-17] MEDS ORDERED: ePHEDrine sulfate 50 MG/ML VIAL IVP ONE (09:04)
[2019-11-17] MEDS ORDERED: SUGAMMADEX SODIUM 200 MG/2 ML VIAL IV ONE (09:04)
[2019-11-17] MEDS ORDERED: LR 1,000 ML IV.SOLN IV ONE (09:04)
[2019-11-17] MEDS ORDERED: BUPIVACAINE LIPOSOME/PF 266 MG/20 ML VIAL INFIL ONE (09:41)
[2019-11-17] MEDS ORDERED: ONDANSETRON HCL 4 MG/2 ML VIAL IVP PRN (11:30)
[2019-11-17] MEDS: HYDROmorphone 1 MG INJ. 1 MG/ML AMPUL IVP PRN ×3 (11:30→11:40)
[2019-11-17] MEDS ORDERED: HYDROmorphone 1 MG INJ. 1 MG/ML AMPUL IVP PRN (11:30)
[2019-11-17] MEDS ORDERED: HYDROmorphone 1 MG INJ. 1 MG/ML AMPUL ONE (11:48)
[2019-11-17 12:20] VITALS: BP_SYST 128
[2019-11-17] MEDS ORDERED: HYDROcodone/ACETAMIN 5-325 MG TAB (NORCO/ VICODIN) PO ONE ×2 (12:40→12:45)
[2019-11-17] MEDS ORDERED: HYDROcodone/ACETAMIN 5-325 MG TAB (NORCO/ VICODIN) ONE (12:58)
== END 2019-11-17 15:00 | disposition home or self-care (01) ==
LOC: SDS 07:09 → SMU 07:09 → SDS 15:00
PROVIDERS: ATTEND Surgery
DX: K43.2 Incisional hernia without obstruction or gangrene (principal); K66.0 Peritoneal adhesions (postprocedural) (postinfection); J44.9 Chronic obstructive pulmonary disease, unspecified; I10 Essential (primary) hypertension; Z11.59 Encounter for screening for other viral diseases; Z79.899 Other long term (current) drug therapy
CPT/HCPCS: 36415; 49560; 49568; 71046; 80053; 93005; C1781; C9290; C9399; J0690; J1100; J1170; J2704; J3010; J3490; J7120; U0003